=== PATIENT | female | born 2000 | race Caucasian/White ===

== ENCOUNTER 2020-06-17 12:26 | Emergency (ER) | payer MEDICAID, SELFPAY ==
[2020-06-17 12:33] VITALS: BP 121/77; PULSE 121; RESP 18; TEMP 36.8; O2SAT 97
--- NOTE | 2020-06-17 12:45 | DI.CT_ITS ---
EXAM: CT ABDOMEN PELVIS W CLINICAL HISTORY: Abdominal pain. TECHNIQUE: Imaging Protocol: Axial computed tomography images with coronal and sagittal reformatted images were created and reviewed CONTRAST MATERIAL: Intravenous: Omnipaque 350 Contrast volume 49 cc Oral: yes / no COMPARISON: No exams were available for comparison FINDINGS: ABDOMEN: Lung Bases: Normal where visualized. Liver: Normal density. No measurable mass. Gallbladder and biliary tract: No radiodense calculus or dilation. Pancreas: Normal density, no abnormal calcifications or inflammatory process. Spleen: Normal. Kidneys: Normal size, contour and axis. No radiodense stones or obstructive uropathy. No masses seen. Adrenal glands: No masses seen. Abdominal Aorta: Abdominal portion non-dilated. PELVIS: Bladder: Symmetric distention, no gross wall thickening. Bowel: No obstruction or bowel wall thickening. Normal appendix. Peritoneal cavity: No ascites, collection or mesenteric inflammatory response. Bones: Within normal limits. Reproductive organs: Within normal limits. Lymph nodes: Unremarkable. Impression: Unremarkable CT scan of the abdomen and pelvis. RADIATION DOSE DELIVERED: Total DLP DATA REPOSITORY: All CT scans at this facility are submitted to the National Radiology Data Registry (NRDR) Dose Index Registry (DIR) with the [employer] ([employer]). RADIATION OPTIMIZATION: All CT scans at this facility use at least one of these dose optimization te chniques: automated exposure control; mA and/or kV adjustment per patient size (includes targeted exa ms where dose is matched to clinical indication); or iterative reconstruction.
--- NOTE | 2020-06-17 12:59 | ED.GENADUL_ITS ---
Discharge Plan Disposition Patient Disposition: HOME Condition: Improving Discharge Details Chief Complaint: Abd Prob Clinical Impression: Abdominal pain Primary Care Provider: Unknown,Unknown ED Provider: Carola Muhammad Home Meds and New Rx's Prescriptions: New omeprazole 40 mg capsule,delayed release(DR/EC) 40 mg PO DAILY Qty: 30 RF: 0 polyethylene glycol 3350 [Miralax] 17 gram/dose powder 17 gm PO DAILY Qty: 255 RF: 0 metoclopramide HCl [Reglan] 10 mg tablet 10 mg PO QACHS PRN (Reason: nausea and vomiting) Qty: 10 RF: 0 No Action albuterol sulfate 2.5 mg /3 mL (0.083 %) Solution For Nebulization 2.5 mg inhalation PRN PRNRF: 0 fluoxetine 20 mg Capsule 20 mg PO DAILY RF: 0 Discharge Instructions Instructions: Abdominal Pain (ED) Additional Instructions: Push fluids to stay well hydrated. Advance diet as tolerated only Take medications as prescribed Referrals: Katia Stone MD [ [facility] STAFF PHYSICIAN] - (abdominal pain, started omeprazole and reglan, EKG) Discharge Data Discharge Date/Time-TO BE ENTERED AT DEPARTURE: 06/17/20 17:10 Medical Decision Making <Gloria Watt - Last Filed: 06/18/20 08:12> 20-year-old female presents to the ER chief complaint of abdominal pain. This is been ongoing for the course of a year. Associated with nausea vomiting and loose stools. Patient states that she has been vomiting over the last 3 days. Has been unable to keep anything down and is losing weight. She states that she is scheduled for an ultrasound by her PCP at the end of this month. She is never had a CAT scan. She denies any vaginal discharge or bleeding or problems urinating. Plan initial exam she is tearful seems upset. She is a non-smoker denies any alcohol intake. Did not take any medications prior to arrival. Labs ordered including CBC, CMP, lipase urinalysis. CT abdomen pelvis with IV contrast ordered and is pending at this time. Patient has received 1 L normal saline and 10 mg of Reglan IV. Care is to be handed off to oncoming provider Carola Muhammad pending CT abdomen pelvis and disposition. Patient was hemodynamically stable at time of this dictation. <Carola Muhammad NP - Last Filed: 06/17/20 16:48> Care of patient received from Shanice Beatty NP patient is awaiting CAT scan results. Her symptoms have improved with IV fluids and Reglan. She has been hemodynamically stable with no further nausea or vomiting. I have reviewed her lab results and CAT scan with her and plan is to discharge to home with outpatient follow-up with GI for further testing likely EGD. I will advise omeprazole 40 mg daily. She did get good effect with Reglan so I will dispense a few tabs for home use. She was also advised to take MiraLAX 17 g daily until having good formed stools. CAT scan shows no acute intra-abdominal/pelvic pathology. Abdominal exam remains benign soft tender over the epigastrium positive bowel sounds Medical Records Medical records reviewed: Yes I reviewed the patient's medical records. Lab Data Lab results reviewed: Yes I reviewed the patient's lab results. Lab results narrative: Diabetes panel 06/17/20 Range/Units 13:16 Sodium 140 (136-145) mmol/L Potassium 3.5 (3.5-5.1) mmol/L Chloride 106 (98-107) mmol/L Carbon Dioxide 23.8 (21.0-32.0) mmol/L BUN 7 (7-18) mg/dL Creatinine 0.73 (0.55-1.02) mg/dL Glucose 89 (74-106) mg/dL Calcium 9.0 (8.5-10.1) mg/dL AST 16 (15-37) U/L ALT 22 (14-59) U/L Alkaline Phosphatase 61 (46-116) U/L Total Protein 6.9 (6.4-8.2) g/dL Albumin 3.8 (3.4-5.0) g/dL Calcium panel 06/17/20 Range/Units 13:16 Calcium 9.0 (8.5-10.1) mg/dL Albumin 3.8 (3.4-5.0) g/dL Pituitary panel 06/17/20 Range/Units 13:16 Sodium 140 (136-145) mmol/L Potassium 3.5 (3.5-5.1) mmol/L Chloride 106 (98-107) mmol/L Carbon Dioxide 23.8 (21.0-32.0) mmol/L BUN 7 (7-18) mg/dL Creatinine 0.73 (0.55-1.02) mg/dL Glucose 89 (74-106) mg/dL Calcium 9.0 (8.5-10.1) mg/dL Adrenal panel 06/17/20 Range/Units 13:16 Sodium 140 (136-145) mmol/L Potassium 3.5 (3.5-5.1) mmol/L Chloride 106 (98-107) mmol/L Carbon Dioxide 23.8 (21.0-32.0) mmol/L BUN 7 (7-18) mg/dL Creatinine 0.73 (0.55-1.02) mg/dL Glucose 89 (74-106) mg/dL Calcium 9.0 (8.5-10.1) mg/dL Total Bilirubin 0.4 (0.2-1.0) mg/dL AST 16 (15-37) U/L ALT 22 (14-59) U/L Alkaline Phosphatase 61 (46-116) U/L Total Protein 6.9 (6.4-8.2) g/dL Albumin 3.8 (3.4-5.0) g/dL HPI <Gloria Watt - Last Filed: 06/18/20 08:12> General Mode of arrival: ambulatory . Date/Time Provider Initiated Documentation: 06/17/20 12:44 . Limitations to Documentation: no limitations . Information obtained by: patient . HPI Narrative: 20-year-old female presents to the ER chief complaint of abdominal pain. This is been ongoing for the course of a year. Associated with nausea vomiting and loose stools. Patient states that she has been vomiting over the last 3 days. Has been unable to keep anything down and is losing weight. She states that she is scheduled for an ultrasound by her PCP at the end of this month. She is never had a CAT scan. She denies any vaginal discharge or bleeding or problems urinating. Plan initial exam she is tearful seems upset. She is a non-smoker denies any alcohol intake. Did not take any medications prior to arrival. Related Data Home Medications Medication Instructions Recorded Confirmed albuterol sulfate 2.5 mg INHALATION PRN PRN 06/17/20 06/17/20 fluoxetine 20 mg PO DAILY 06/17/20 06/17/20 metoclopramide HCl [Reglan] 10 mg PO QACHS PRN #10 tab 06/17/20 omeprazole 40 mg PO DAILY #30 cap 06/17/20 polyethylene glycol 3350 [Miralax] 17 gm PO DAILY #255 gm 06/17/20 Previous Rx's Medication Instructions Recorded metoclopramide HCl [Reglan] 10 mg PO QACHS PRN #10 tab 06/17/20 omeprazole 40 mg PO DAILY #30 cap 06/17/20 polyethylene glycol 3350 [Miralax] 17 gm PO DAILY #255 gm 06/17/20 Allergies Allergy/AdvReac Type Severity Reaction Status Date / Time No Known Allergies Allergy Unverified 06/17/20 12:39 General Stated Complaint: Abd Prob JESSI: 3 Review of Systems <Gloria Alysa - Last Filed: 06/18/20 08:12> Narrative: Constitutional: Negative for weight loss, alert and oriented, well groomed, normal body habitus, appears uncomfortable. Is tearful. HEENT: Denies trauma, headaches, blurry vision, nasal discharge, sore throat, trouble swallowing. Chest: Denies chest pain, palpitations, irregular rhythm, hypertension. Respiratory: Denies Shortness of breath, cough, hemoptysis. GI: Positive abdominal pain, nausea vomiting, alternating with diarrhea and constipation. : Denies dysuria, hematuria, flank pain, rectal bleeding. Neuro: Denies dizziness, blurry vision, weakness, syncope, headache or facial numbness. Hematologic: Denies easy bruising, intolerance to heat or cold, hair loss. PFSH <Gloria Alysa - Last Filed: 06/18/20 08:12> Social History Smoking/Tobacco Use Status: Never Alcohol Intake: never Drug use: Occasionally Substance use type: marijuana Do you feel safe at home: Yes Do you feel safe in your relationship?: Yes Exam <Gloria Alysa - Last Filed: 06/18/20 08:12> Narrative Exam Narrative: Constitutional: Alert and oriented x3. Appears stated age. Normal body habitus. Head: Normocephalic, no trauma. Eyes: Pupils PERRLA, Red reflex noted, EOM's intact. Eyelids symmetrical without lesions, discharge, or swelling. ENT: Bilateral TM's WNL, External ear normal to inspection, no mastoid TTP, swelling, or erythema, Nasal turbinates WNL, no nasal discharge. Normal dentition, Posterior pharynx WNL, no exudate. Chest: RRR, Normal S1, S2, distal pulses intact. Resp: Lungs clear to auscultation bilaterally, no wheezes, rales, or rhonchi. Abdomen: Nondistended, midepigastric abdominal pain with palpation. Hyperactive bowel sounds all 4 quadrants. Musculoskeletal: Normal gait, 5/5 strength to all four extremities. Skin: No suspicious rashes or lesions. Capillary refill less than 2 sec. Neurologic: Cranial nerves II-XII intact. Alert and oriented x 3. DTR's intact. Hematologic/Lymphatic: No ecchymosis, no lymphadenopathy. Course <Gloria Watt - Last Filed: 06/18/20 08:12> Vital Signs Vital signs: Vital Signs Temperature 36.8 C 06/17/20 12:33 Pulse 121 H 06/17/20 12:33 Respiratory Rate 18 06/17/20 12:33 Blood Pressure 121/77 06/17/20 12:33 Pulse Oximetry 97 06/17/20 12:33 Temperature 36.8 C 06/17/20 12:33 Pulse 121 H 06/17/20 12:33 Respiratory Rate 18 06/17/20 12:33 Respiratory Effort Non-Labored 06/17/20 12:41 Blood Pressure 121/77 06/17/20 12:33 Blood Pressure Position Sitting 06/17/20 12:33 Pulse Oximetry 97 06/17/20 12:33 Oxygen Delivery Method Room Air 06/17/20 12:33 Oxygen Flow Rate 0 06/17/20 12:33 Pain Level 6 06/17/20 12:33
[2020-06-17 13:22] LABS: Abs Immature Grans 0.03 10^3/uL (0.0-0.06); Absolute Basophil Count 0.04 10^3/uL (0.0-0.2); Absolute Eosinophil Count 0.04 10^3/uL (0.0-0.7); Absolute Lymphocyte Count 2.07 10^3/uL (1.2-3.4); Absolute Monocyte Count 0.81 10^3/uL (0.1-0.8); Basophils % 0.3; Eosinophils % 0.3; HGB 12.8 g/dL (11.2-15.7); Immature Grans % 0.3; Lymphocytes % 17.7; MCH 27.5 pg (27.0-33.0); MCHC 33.7 % (32.0-36.0); MCV 81.7 fL (80-95); Monocytes % 6.9; Neutrophils % 74.5; Nucleated RBC 0 %; Platelet Count 239 10^3/uL (130-400); RBC 4.65 10^6/uL (3.93-5.22); RDW 12.9 % (11.7-14.6); RDW-SD 38.4 fL; WBC 11.68 10^3/uL (4.4-10.8)
[2020-06-17] MEDS: Normal Saline 1,000 ML 1000 ML IV (13:25)
[2020-06-17] MEDS: Metoclopramide 10 MG/2 ML VIAL IVP (13:25)
[2020-06-17 13:37] LABS: ALT 22 U/L (14-59); AST 16 U/L (15-37); Albumin 3.8 g/dL (3.4-5.0); Alkaline Phosphatase 61 U/L (46-116); Anion Gap 10.2 mmol/L (3-11); BUN 7 mg/dL (7-18); Bilirubin, Total 0.4 mg/dL (0.2-1.0); CO2 23.8 mmol/L (21.0-32.0); CREATININE 0.73 mg/dL (0.55-1.02); Chloride 106 mmol/L (98-107); Glucose 89 mg/dL (74-106); Lipase 47 U/L (73-393); Magnesium 1.9 mg/dL (1.8-2.4); Potassium 3.5 mmol/L (3.5-5.1); Sodium 140 mmol/L (136-145); Total Protein 6.9 g/dL (6.4-8.2)
[2020-06-17 15:34] LABS: Bilirubin Negative (Negative); Blood Negative (Negative); Clarity Clear (Clear); Glucose Negative (Negative); Ketones 15 mg/dL (Negative); Leukocyte Esterase Negative (Negative); Nitrite Negative (Negative); Urobilinogen 0.2 EU/dL (Up TO 0.2)
[2020-06-17] MEDS: Omnipaque 350 MG/ML 100 ML BTL IJ (15:35)
[2020-06-17] MEDS: Normal Saline - Diluent 50 ML VIAL IV (15:36)
--- NOTE | 2020-06-17 16:10 | DI.VRAD_ITS ---
PROCEDURE INFORMATION: Exam: CT Abdomen And Pelvis With Contrast Exam date and time: 06/17/2020 3:34 PM Age: 20 years old Clinical indication: Abdominal pain TECHNIQUE: Imaging protocol: Computed tomography of the abdomen and pelvis with intravenous contrast. COMPARISON: No relevant prior studies available. FINDINGS: Liver: Normal. No mass. Gallbladder and bile ducts: Normal. No calcified stones. No ductal dilation. Pancreas: Normal. No ductal dilation. Spleen: Normal. No splenomegaly. Adrenals: Normal. No mass. Kidneys and ureters: Small left renal cyst benign cyst. Stomach and bowel: Unremarkable. No obstruction. No mucosal thickening. Appendix: A normal appendix is identified. Intraperitoneal space: Unremarkable. No free air. No significant fluid collection. Vasculature: Unremarkable. No abdominal aortic aneurysm. Lymph nodes: Unremarkable. No enlarged lymph nodes. Bladder: Unremarkable as visualized. Reproductive: Unremarkable as visualized. Bones/joints: Unremarkable. No acute fracture. Soft tissues: Unremarkable. IMPRESSION: No evidence of acute abdominopelvic pathology. Dictated and Authenticated by: Qamar Norman MD. Ordering:NICK Castro MD
[2020-06-17 16:58] VITALS: BP 108/66; PULSE 98; RESP 18; TEMP 37.1; O2SAT 99
[2020-06-17] MEDS: Pantoprazole 40 MG VIAL IVP (17:01)
== END 2020-06-17 17:10 | disposition home or self-care (01) ==
PROVIDERS: Registered Nurse Emergency; Emergency Provider Nurse Practitioner Acute Care
DX: R11.2 Nausea with vomiting, unspecified (principal); R10.9 Unspecified abdominal pain
CPT/HCPCS: 80053; 81025; 83690; 96361; 96374; 96375; 99285; 74177; 81003; 83735; 85025; 99284; J2765; J3490